=== PATIENT | female | born 1995 | race Caucasian/White ===

== ENCOUNTER 2017-04-21 12:47 | Emergency (ER) | payer OTHER, BC ==
[~2017-04-21] VITALS: Ht 170.2 cm; Wt 90.0 kg
[2017-04-21 12:48] VITALS: BP 148/92; PULSE 93; RESP 17; TEMP 98.2; O2SAT 99
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
== END 2017-04-21 14:54 | disposition home or self-care (01) ==
LOC: NEPK 12:47
DX: S20.219A Contusion of unspecified front wall of thorax, initial encounter (principal); V49.50XA Passenger injured in collision with unspecified motor vehicles in traffic accident, initial encounter; Y92.414 Local residential or business street as the place of occurrence of the external cause
CPT/HCPCS: 71111; 99283